=== PATIENT | female | born 1970 | race Caucasian/White ===

== ENCOUNTER 2019-07-03 06:00 | Day surgery (SDC) | payer BC, OTHER, SELFPAY ==
[2019-07-02 12:41] VITALS: BMI 38.0
[2019-07-03 06:23] VITALS: BP 157/110; PULSE 88; RESP 18; TEMP 37.1; O2SAT 98
[2019-07-03] MEDS: sodium chloride 0.9% 1,000 ML 30 ML (06:29)
--- NOTE | 2019-07-03 06:57 | ANES.PREANES ---
Pre-Anesthetic Assessment Pre-Anesthetic Assessment: Height/Weight: Height 1.68 m Weight 107.048 kg Temp Pulse Resp BP Pulse Ox 98.8 F 88 18 157/110 98 07/03/19 06:23 07/03/19 06:23 07/03/19 06:23 07/03/19 06:23 07/03/19 06:23 Proposed Procedure: Operation Date: 07/03/19 07:15 Proposed Procedures p Colonoscopy(Not Applicable) - Pedro Alamo MD Last intake: Intake Last Liquid Date 07/02/19 Last Liquid Time 21:00 Last Solid Date 07/01/19 Last Solid Time 18:00 Last Intake: 07:00 Social: Social History: No alcohol and No tobacco Exam: Pre-Anes Outpt Exam: alert, oriented x 3, clear to auscultation bilaterally and regular rate & rhythm Pulmonary: Pulmonary: None reported CV/HEM: CV/HEM: None reported : : None reported Hepatic: Hepatic: None reported GI: GI: None reported Metabolic: Metabolic: Morbid obesity Musc/skel: Musc/skel: None reported Neuropsych: Neuropsych: None reported Anesthetic Plan: ASA status: II Anesthesia: Anesthesia Evaluation, MAC and Regional (specify below) Risk of > 500 ml blood loss (7ml/kg in children): No PFSH Anesthesia PFSH: Social History Smoking and tobacco status: never smoked Alcohol intake: never Substance/Drug Use: never Data Anesthesia Cardiac Studies: No Data to Display
--- NOTE | 2019-07-03 07:09 | PM.HPUD ---
H&P update H&P Update: DATE OF SURGERY/PROCEDURE: 07/03/19 DATE H&P PERFORMED: 07/03/19 PLANNED PROCEDURE: Operation Date: 07/03/19 07:15 Proposed Procedures p Colonoscopy(Not Applicable) - Pedro Alamo MD Full H&P Perinent History: Social History: Social History Smoking and tobacco status: never smoked Alcohol intake: never Substance/Drug Use: never
[2019-07-03 07:34] VITALS: BP 155/91; PULSE 98; RESP 18; TEMP 36.5; O2SAT 99
--- NOTE | 2019-07-03 07:40 | ANE.PACU ---
 Inpatient post-anesthesia follow up: Airway intact: Yes Vital signs: Temperature 97.7 F Pulse Rate [Monito r] 98 Respiratory Rate 18 Blood Pressure [Ri ght Arm] 155/91 Blood Pressure [Le ft Arm] 157/110 Pulse Oximetry 99 Oxygen Delivery Me thod Nasal Cannula Oxygen Flow Rate 3 Fraction of Inspir ed Oxygen Hydration adequate: Yes Nausea and vomiting: No Pain level: Other Pain level: 0/10 Mental status: Baseline
[2019-07-03 07:49] VITALS: BP 144/94; PULSE 85; RESP 18; O2SAT 98
== END 2019-07-03 08:01 | disposition home or self-care (01) ==
PROVIDERS: Family Provider Family Medicine; PCP Family Medicine; Visit Provider Surgery
PROC: 0DJD8ZZ Inspection of Lower Intestinal Tract, Via Natural or Artificial Opening Endoscopic (ICD-10-PCS; CPT 45378; principal; 2019-07-03 07:15)
DX: K92.1 Melena (principal); Z80.0 Family history of malignant neoplasm of digestive organs; K59.00 Constipation, unspecified; E66.01 Morbid (severe) obesity due to excess calories; Z68.38 Body mass index [BMI] 38.0-38.9, adult
CPT/HCPCS: 45378; 99221; J2704; J7030

== ENCOUNTER 2020-05-04 09:52 | Outpatient (CLI) | payer BC, SELFPAY ==
--- NOTE | 2020-05-04 10:08 | MM_ITS ---
WS: [id number] Bilateral screening digital mammogram, 05/04/2020 Clinical Data: SCREENING Comparison: 01/31/2013, 01/04/2012, 12/22/2011. Findings: The breast parenchymal pattern shows heterogeneously dense No spiculated masses or clustered calcific ations are seen. There are no secondary signs of carcinoma. There is a mole marker on the left breast . There are small bilateral axillary lymph nodes. MM/[id number] Impression: 1. Negative bilateral mammogram unchanged. 2. Recommend annual screening mammograms. BIRADS: 1-Negative FOLLOW UP: 1 Year Follow-up The CAD field checker was used.
== END 2020-05-04 09:53 | disposition home or self-care (01) ==
LOC: RADSHAW 09:55
PROVIDERS: PCP Family Medicine; Visit Provider Family Medicine
DX: Z12.31 Encounter for screening mammogram for malignant neoplasm of breast (principal)
CPT/HCPCS: 77067

== ENCOUNTER 2021-04-28 14:24 | Outpatient (CLI) | payer BC, OTHER, SELFPAY ==
--- NOTE | 2021-04-28 14:29 | FL_ITS ---
WS: [id number] Modified barium swallow, 04/28/2021 Clinical Data: Other dysphagia Comparison: None. Fluoroscopy time: 1.5 minutes. Findings: The patient initiated swallowing normally. The bolus passed from the oropharynx and hypopharynx and t hen the esophagus. The patient did have penetration and exhibited coughing. There is no aspiration. T he barium tablet was swallowed normally. FL/FL barium swallow modifd [id number] Impression: Penetration without aspiration.
== END 2021-04-28 14:25 | disposition home or self-care (01) ==
LOC: RAD 14:27
PROVIDERS: PCP Family Medicine; Visit Provider Family Medicine
DX: R47.02 Dysphasia (principal)
CPT/HCPCS: 74230; 92611